=== PATIENT | male | born 1935 | race Caucasian/White ===

== ENCOUNTER 2018-08-10 14:06 | Observation (INO) | payer MEDICARE ==
--- NOTE | 2018-08-10 15:18 | ER Document Report ---
ED Medical Screen (RME) - General Chief Complaint: Facial Droop Stated Complaint: FACIAL DROOP Time Seen by Provider: 08/10/18 15:16 Mode of Arrival: Medic Information source: Patient Notes: 82-year-old male presents to ED for complaint of facial droop to the right side since . He came via EMS. He is alert and oriented and answering questions in full sentences. Respirations are regular and unlabored. 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 I have greeted and performed a rapid initial assessment of this patient. A comprehensive ED assessment and evaluation of the patient, analysis of test results and completion of medical decision making process will be conducted by an additional ED providers. TRAVEL OUTSIDE OF THE [place] IN LAST 30 DAYS: No - Related Data Allergies/Adverse Reactions: No Known Allergies Allergy (Verified 08/10/18 14:06) Physical Exam - Vital signs Vitals: Temp Pulse Resp BP Pulse Ox 98.1 F 81 20 143/77 H 96 08/10/18 14:10 08/10/18 14:10 08/10/18 14:10 08/10/18 14:10 08/10/18 14:10 Course - Vital Signs Vital signs: Temp Pulse Resp BP Pulse Ox 98.1 F 81 20 143/77 H 96 08/10/18 14:10 08/10/18 14:10 08/10/18 14:10 08/10/18 14:10 08/10/18 14:10 Doctor's Discharge - Discharge Referrals: Karolina LAWS MD [Primary Care Provider] - Follow up as needed
[2018-08-10 16:02] LABS: INTERNATIONAL RATION (INR) 0.96; PARTIAL THROMBOPLASTIN TIME 25.6 SEC (23.5-35.8); PROTHROMBIN TIME 13.2 SEC (11.4-15.4)
--- NOTE | 2018-08-10 17:02 | RADIOLOGY REPORT (SQ) ---
EXAM DESCRIPTION: CT HEAD WITHOUT COMPLETED DATE/TIME: 08/10/2018 4:47 pm REASON FOR STUDY: Right-sided facial droop, alert and oriented COMPARISON: None. TECHNIQUE: Axial images acquired through the brain without intravenous contrast. Images reviewed wi th bone, brain and subdural windows. Additional sagittal and coronal reconstructions were generated. Images stored on PACS. All CT scanners at this facility use dose modulation, iterative reconstruction, and/or weight based d osing when appropriate to reduce radiation dose to as low as reasonably achievable (ALARA). [facility]: Dose Right [facility]: CareDose [facility]: Dose Right [facility]: Teradose 4D [facility]: vogogo RADIATION DOSE: CT Rad equipment meets quality standard of care and radiation dose reduction techniq ues were employed. CTDIvol: 53.2 mGy. DLP: 991 mGy-cm. mGy. LIMITATIONS: None. FINDINGS: VENTRICLES: Normal size and contour. CEREBRUM: Subacute nonhemorrhagic infarcts are present in the left deep periventricular white matter on axial image 20. No acute intracranial hemorrhage, mass effect, or midline shift. CEREBELLUM: No masses. No hemorrhage. No alteration of density. No evidence for acute infarction. EXTRAAXIAL SPACES: No fluid collections. No masses. ORBITS AND GLOBE: No intra- or extraconal masses. Normal contour of globe without masses. CALVARIUM: No fracture. PARANASAL SINUSES: No fluid or mucosal thickening. SOFT TISSUES: No mass or hematoma. OTHER: No other significant finding. 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
[2018-08-10] MEDS ORDERED: NORMAL SALINE 1000 ML 1,000 ML IV ONE (17:38)
--- NOTE | 2018-08-10 17:43 | ER Document Report ---
ED General - General Chief Complaint: Facial Droop Stated Complaint: FACIAL DROOP Time Seen by Provider: 08/10/18 15:16 Mode of Arrival: Medic TRAVEL OUTSIDE OF THE [place] IN LAST 30 DAYS: No - HPI Notes: Patient is an 82-year-old male with a history of hypertension and diabetes (not currently on DM medications), blind in left eye(x5yrs) who presents to the ED complaining of possible stroke that he suffered 7 days ago. Patient states that he developed facial droop and slurring of speech at that time. When asked why patient did not get immediate follow-up, patient states that "I just did not want to." Patient states that he presents today mainly because his is having a hard time understanding his words because of the slurring. Patient states that he is still able to eat and drink without any difficulties. He is urinating normally and having normal bowel movements. He has not noticed any significant weakness. Patient states that he is still ambulatory. He is not on any blood thinners. Denies any headache, fever, head injury, neck pain, changes in vision/mentation/hearing, URI, sore throat, chest pain, palpitations , syncope, cough, shortness of breath, wheeze, dyspnea, abdominal pain, nausea/ vomiting/diarrhea, urinary retention, dysuria, hematuria, loss of control of bowel or bladder, numbness/tingling, saddle anesthesia, muscle paralysis/ weakness, or rash. - Related Data Allergies/Adverse Reactions: No Known Allergies Allergy (Verified 08/10/18 14:06) Past Medical History - General Information source: Patient - Social History Smoking Status: Current Some Day Smoker Chew tobacco use (# tins/day): No Frequency of alcohol use: Occasional Drug Abuse: None Family History: Reviewed & Not Pertinent Patient has suicidal ideation: No Patient has homicidal ideation: No Renal/ Medical History: Denies: Hx Peritoneal Dialysis Review of Systems - Review of Systems -: Yes All other systems reviewed and negative Physical Exam - Vital signs Vitals: Temp Pulse Resp BP Pulse Ox 98.1 F 81 20 143/77 H 96 08/10/18 14:10 08/10/18 14:10 08/10/18 14:10 08/10/18 14:10 08/10/18 14:10 - Notes Notes: PHYSICAL EXAMINATION: GENERAL: Well-appearing, well-nourished and in no acute distress. A&Ox4. Answers questions appropriately. HEAD: Atraumatic, normocephalic. Non-tender. EYES: Pupils equal round and reactive to light, extraocular movements intact, sclera anicteric, conjunctiva are normal. No nystagmus. vis fabian intact. ( left eye chronic blindness x5 years) ENT: EAC clear b/l. TM's intact b/l without erythema, fluid, or perforation. Nares patent and without discharge. oropharynx clear without exudates. No tonsilar hypertrophy or erythema. Moist mucous membranes. No sinus tenderness. Tongue protrudes midline and can be moved side to side. NECK: Normal range of motion, supple without lymphadenopathy. No rigidity/ meningismus. No midline tenderness. LUNGS: Breath sounds clear to auscultation bilaterally and equal. No wheezes rales or rhonchi. HEART: Regular rate and rhythm without murmurs, rubs, gallops. ABDOMEN: Soft, nontender, nondistended abdomen. No guarding, no rebound. Normal bowel sounds present. No CVA tenderness bilaterally. Musculoskeletal: Ext b/l: FROM to passive/active. Strength 5+/5. No deficits noted. No bony tenderness of extremities. Extremities: No cyanosis, clubbing, or edema b/l. Peripheral pulses 2+. Capillary refill less than 2 seconds. NEUROLOGICAL: NIH 4. GCS 15. Cranial nerves grossly intact with noted rt side facial droop. Speech is slurred but understandable. Normal sensory, motor exams otherwise. Reflexes 2+ b/l. RICARDO's negative. Pronator drift negative. Heel/mary, finger/nose wnl. PSYCH: Normal mood, normal affect. SKIN: Warm, Dry, normal turgor, no rashes or lesions noted. Course - Re-evaluation Re-evalutation: 08/10/18 17:43 CT obtained at triage which shows "subacute nonhemorrhagic infarcts in the left frontal deep periventricular white matter." Coags unremarkable. CBC and CMP added to blood work. EMS accucheck of 321. Fluids ordered. 08/10/18 17:53 I did call and speak with hospitalist, Dr. Hernández, who accepted admission. Pt is in agreement. - Vital Signs Vital signs: Temp Pulse Resp BP Pulse Ox 98.1 F 81 20 143/77 H 96 08/10/18 14:10 08/10/18 14:10 08/10/18 14:10 08/10/18 14:10 08/10/18 14:10 - Laboratory Result Diagrams: 08/10/18 15:35 08/10/18 15:35 Laboratory results interpreted by me: 08/10/18 15:35 BUN 27 H Creatinine 1.44 H Est GFR ( Amer) 57 L Est GFR (Non-Af Amer) 47 L Glucose 245 H Direct Bilirubin 0.6 H ALT 14 L Discharge - Discharge Clinical Impression: CVA, old, facial weakness Condition: Stable Disposition: ADMITTED INPATIENT Admitting Provider: Hospitalist - Dr. Hernández Unit Admitted: Medical Floor Referrals: Karoilna LAWS MD [ACTIVE STAFF] - Follow up as needed
[2018-08-10 17:49] LABS: ALANINE AMINOTRANSFERASE 14 U/L (21-72); ALBUMIN 4.5 g/dL (3.5-5.0); ALKALINE PHOSPHATASE 71 U/L (38-126); ANION GAP 13 (5-19); ASPARTATE AMINO TRANSFERASE 23 U/L (17-59); BILIRUBIN,DIRECT 0.6 mg/dL (0.0-0.4); BLOOD UREA NITROGEN 27 mg/dL (7-20); CALCIUM 9.6 mg/dL (8.4-10.2); CARBON DIOXIDE 24 mmol/L (22-30); CHLORIDE 105 mmol/L (98-107); GLUCOSE 245 mg/dL (75-110); POTASSIUM 4.2 mmol/L (3.6-5.0); SODIUM 142.4 mmol/L (137-145)
[2018-08-10 17:54] LABS: ABSOLUTE EOSINOPHILS # (AUTO) 0.2 10^3/uL (0.0-0.6); ABSOLUTE LYMPHOCYTES (AUTO) 1.1 10^3/uL (0.5-4.7); ABSOLUTE MONOCYTES (AUTO) 0.3 10^3/uL (0.1-1.4); ABSOLUTE NEUT (AUTO) 3.3 10^3/uL (1.7-8.2); BASOPHILS % (AUTO) 0.8 % (0-2); EOSINOPHILS % (AUTO) 4.5 % (0-6); HEMATOCRIT 46.8 % (37.9-51.0); HEMOGLOBIN 16.2 g/dL (13.5-17.0); LYMPHOCYTES % (AUTO) 21.3 % (13-45); MEAN CORPUSCULAR HEMOGLOBIN 30.5 pg (27.0-33.4); MEAN CORPUSCULAR HGB CONC 34.6 g/dL (32.0-36.0); MEAN CORPUSCULAR VOLUME 88 fl (80-97); MONOCYTES % (AUTO) 6.6 % (3-13); PLATELET COUNT 194 10^3/uL (150-450); RED BLOOD COUNT 5.31 10^6/uL (4.35-5.55); RED CELL DISTRIBUTION WIDTH 13.7 % (11.5-14.0); SEGMENTED NEUTROPHILS % (AUTO) 66.8 % (42-78); TOTAL CELLS COUNTED % (AUTO) 100 %
[2018-08-10] MEDS ORDERED: ONDANSETRON HCL INJ/PF 4 MG/2 ML SDV IV PRN (18:42)
[2018-08-10] MEDS ORDERED: HYDROCODONE/ACETAMINOPHEN 5-325 MG TABLET PO PRN (18:42)
[2018-08-10] MEDS ORDERED: ACETAMINOPHEN 325 MG TABLET PO PRN (18:42)
[2018-08-10] MEDS ORDERED: DOCUSATE SODIUM 100 MG CAPSULE PO PRN (18:42)
--- NOTE | 2018-08-10 19:51 | PDOC H&P ---
History of Present Illness Admission Date/PCP: 08/10/18 18:48 Patient complains of: Difficulty with speech, History of Present Illness: JACK CHRISTIANSON is a 82 year old male Who presents to the emergency room with complaints of 70 right upper extremity weakness as well as difficulty with his speech. He still has received aphasia. He denies any difficulty swallowing, chest pain, dizziness, or any leg weakness, patient really denies any problems other significant medical history. He says he takes no medications and usually ambulates without any assistance Past Medical History Medical History: None Past Surgical History Past Surgical History: Reports: None Social History Smoking Status: Current Some Day Smoker - Advance Directive Resuscitation Status: Full Code Family History Family History: Reviewed & Not Pertinent Parental Family History Reviewed: No Children Family History Reviewed: Yes Sibling(s) Family History Reviewed.: No Medication/Allergy Home Medications: No Home Medications 08/10/18 Allergies/Adverse Reactions: No Known Allergies Allergy (Verified 08/10/18 14:06) Review of Systems All systems: reviewed and no additional remarkable complaints except as stated Physical Exam Vital Signs: Temp Pulse Resp BP Pulse Ox 98.1 F 74 15 166/71 H 97 08/10/18 14:10 08/10/18 18:17 08/10/18 18:17 08/10/18 18:17 08/10/18 18:17 General appearance: PRESENT: no acute distress, cooperative Head exam: PRESENT: atraumatic Mouth exam: PRESENT: dry mucosa Respiratory exam: PRESENT: decreased breath sounds GI/Abdominal exam: PRESENT: normal bowel sounds, soft. ABSENT: distended, guarding, mass, organolmegaly, rebound, tenderness Rectal exam: PRESENT: deferred Neurological exam: PRESENT: alert, awake, oriented to person, oriented to place , oriented to time, motor sensory deficit - Strength 3/5 RUE R tongue deviation , aphasic - mild expressive, other - dysarthria Psychiatric exam: PRESENT: appropriate affect Skin exam: PRESENT: rash - lower extremities Results Laboratory Results: 08/10/18 15:35 08/10/18 15:35 MCV 88 fl (80-97) 08/10/18 15:35 MCH 30.5 pg (27.0-33.4) 08/10/18 15:35 MCHC 34.6 g/dL (32.0-36.0) 08/10/18 15:35 RDW 13.7 % (11.5-14.0) 08/10/18 15:35 Seg Neutrophils % 66.8 % (42-78) 08/10/18 15:35 Lymphocytes % 21.3 % (13-45) 08/10/18 15:35 Monocytes % 6.6 % (3-13) 08/10/18 15:35 Eosinophils % 4.5 % (0-6) 08/10/18 15:35 Basophils % 0.8 % (0-2) 08/10/18 15:35 Absolute Neutrophils 3.3 10^3/uL (1.7-8.2) 08/10/18 15:35 Absolute Lymphocytes 1.1 10^3/uL (0.5-4.7) 08/10/18 15:35 Absolute Monocytes 0.3 10^3/uL (0.1-1.4) 08/10/18 15:35 Absolute Eosinophils 0.2 10^3/uL (0.0-0.6) 08/10/18 15:35 Absolute Basophils 0.0 10^3/uL (0.0-0.2) 08/10/18 15:35 Chloride 105 mmol/L (98-107) 08/10/18 15:35 Carbon Dioxide 24 mmol/L (22-30) 08/10/18 15:35 Anion Gap 13 (5-19) 08/10/18 15:35 Est GFR ( Amer) 57 (>60) L 08/10/18 15:35 Est GFR (Non-Af Amer) 47 (>60) L 08/10/18 15:35 Glucose 245 mg/dL (75-110) H 08/10/18 15:35 Calcium 9.6 mg/dL (8.4-10.2) 08/10/18 15:35 Total Bilirubin 1.0 mg/dL (0.2-1.3) 08/10/18 15:35 AST 23 U/L (17-59) 08/10/18 15:35 ALT 14 U/L (21-72) L 08/10/18 15:35 Alkaline Phosphatase 71 U/L (38-126) 08/10/18 15:35 Total Protein 8.0 g/dL (6.3-8.2) 08/10/18 15:35 Albumin 4.5 g/dL (3.5-5.0) 08/10/18 15:35 Impressions: Head CT 08/10/18 15:19 IMPRESSION: 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 Will obtaiun echo, carotid doppler and MRI PT and OT evaluation ekg monitor, troponin and EKG - Time Time Spent: 30 to 50 Minutes Medications reviewed and adjusted accordingly: Yes Anticipated discharge: Home with Homehealth Within: within 24 hours - Inpatient Certification Based on my medical assessment, after consideration of the patient's comorbidities, presenting symptoms, or acuity I expect that the services needed warrant INPATIENT care.: Yes Medical Necessity: Risk of Complication if Not Cared For in Hospital
[2018-08-10] MEDS ORDERED: 1/2 NORMAL SALINE 1,000 ML IV PRN (19:52)
--- NOTE | 2018-08-10 21:27 | RADIOLOGY REPORT (SQ) ---
XR CHEST 1 VIEW HISTORY: CVA COMPARISON: None. FINDINGS/IMPRESSION: Normal cardiomediastinal contours. Lungs are clear. No pleural effusion or pneumothorax is seen. No acute osseous findings.
[2018-08-10] MEDS ORDERED: ATORVASTATIN CALCIUM 20 MG TABLET PO SCH (22:00)
[2018-08-10] MEDS ORDERED: HYDRALAZINE HCL INJ/PF 20 MG/1 ML SDV IV PRN (22:37)
[2018-08-11] MEDS ORDERED: ASPIRIN 325 MG TABLET, ENT COATED PO ONE (01:15)
--- NOTE | 2018-08-11 02:09 | RADIOLOGY REPORT (SQ) ---
NAME: JACK CHRISTIANSON PROCEDURE: US CAROTID DOPPLER BILATERAL ORDER DATE: 08/10/2018 12:00 AM CDT ACCESSION NUMBER: [id number] Clinical History: CVA, dysarthria Indication: Same as above Comparison: None . COMPLETED DATE/TME: 08/10/2018 00:00 TECHNIQUE: Real time images, spectral wave analysis, Doppler color flow analysis and measurement of the arterial velocities of the bilateral common carotid, internal carotid, external carotid and vertebral arteries was done. FINDINGS: The peak systolic velocity in cm/sec on the right side is as follows: Proximal CCA: 43.5 Distal CCA: 38.6 Proximal ICA: 57.5 Distal ICA: 76.1 External Carotid Artery: 41.5 Vertebral Artery: 31.4, [antegrade] flow. ICA/CCA Ratio: 1.9 The peak systolic velocity in the cm/sec on the left side is as follows: Proximal CCA: 64 Distal CCA: 51 Proximal ICA: 67 Distal ICA: 82 External Carotid Artery: 43 Vertebral Artery: 32, [antegrade] flow. ICA/CCA Ratio: 1.6 Mild soft plaque formation is seen in the bilateral carotid distribution. IMPRESSION: There is no evidence of hemodynamically significant stenosis in the bilateral common carotid and the bilateral internal carotid arteries. Antegrade flow is seen in the bilateral vertebral arteries.
[2018-08-11 05:09] LABS: ANION GAP 10 (5-19); BLOOD UREA NITROGEN 22 mg/dL (7-20); CALCIUM 8.7 mg/dL (8.4-10.2); CARBON DIOXIDE 23 mmol/L (22-30); CHLORIDE 110 mmol/L (98-107); CHOLESTEROL 182.85 mg/dL (0-200); GLUCOSE 136 mg/dL (75-110); POTASSIUM 3.7 mmol/L (3.6-5.0); SODIUM 142.8 mmol/L (137-145); TRIGLYCERIDES 204 mg/dL (<150)
[2018-08-11 05:20] LABS: DIRECT LDL 109 mg/dL (<100)
[2018-08-11 05:28] LABS: VLDL CHOLESTEROL 40.8 mg/dL (10-31)
--- NOTE | 2018-08-11 07:15 | RADIOLOGY REPORT (SQ) ---
EXAM DESCRIPTION: MR BRAIN WITHOUT IV CONTRAST COMPLETED DATE/TME: 08/10/2018 00:00 CLINICAL HISTORY: 82 years Male, Subacute CVA COMPARISON: CT, same day TECHNIQUE/LIMITATION: Conventional noncontrast MRI. FINDINGS: Acute/subacute ischemia pattern measures 3.3 cm at the left deep periventricular white matter consistent with CT. Adjacent faint increased T1 speckled signal at the left external capsule. No mass effect no midline shift. Normal ventricles. Bilateral maxillary retention cyst-mucocele measure up to 2.4 cm on the left. IMPRESSION: Acute/subacute ischemia of the left deep periventricular white matter.
--- NOTE | 2018-08-11 08:34 | EKG REPORT ---
SEVERITY:- ABNORMAL ECG - SINUS RHYTHM BORDERLINE LEFT AXIS DEVIATION : Confirmed by: Rick Herrera 11-Aug-2018 08:34:02
[2018-08-11] MEDS ORDERED: ASPIRIN 325 MG TABLET, ENT COATED PO SCH (10:00)
[2018-08-11] MEDS ORDERED: ENOXAPARIN SODIUM INJ 40 MG/0.4 ML DISP.SYRIN SUBCUT SCH (10:00)
--- NOTE | 2018-08-11 11:37 | PDOC DISCHARGE SUMMARY ---
General - Admit/Disc Date/PCP Admission Date/Primary Care Provider: 08/10/18 18:48 Discharge Date: 08/11/18 - Discharge Diagnosis (1) CVA (cerebral vascular accident) Is this a current diagnosis for this admission?: Yes (2) EDYTA (acute kidney injury) Is this a current diagnosis for this admission?: Yes Summary: Possibly superimposed on CKD stage 3 (3) Dyslipidemia Is this a current diagnosis for this admission?: Yes - Additional Information Resuscitation Status: Full Code Discharge Diet: Cardiac Discharge Activity: Activity As Tolerated Prescriptions: Atorvastatin Calcium [Lipitor 20 mg Tablet] 20 mg PO QHS #30 tablet Home Medications: Atorvastatin Calcium [Lipitor 20 mg Tablet] 20 mg PO QHS #30 tablet 08/11/18 History of Present Illness History of Present Illness: JACK CHRISTIANSON is a 82 year old male Who presents to the emergency room with complaints of 70 right upper extremity weakness as well as difficulty with his speech. He still has received aphasia. He denies any difficulty swallowing, chest pain, dizziness, or any leg weakness, patient really denies any problems other significant medical history. He says he takes no medications and usually ambulates without any assistance Hospital Course Hospital Course: Patient was monitored overnight with no extension of his symptoms in fact I did perceive that his dysarthria seem to be a little bit better and much improved this morning. He still has his right facial droop but he was able to ambulate to the bathroom impending inclement weather there is no physical therapy occupational therapy for evaluation prior to discharge per patient will be set up with outpatient rehabilitation for further management. MRI done did confirm the acute to subacute CVA and carotid Doppler studies revealed no significant findings. Echocardiogram result is still pending at this time but patient will be following up with Dr. Herrera for results of the echo as well as outpatient telemetry monitoring. Patient has been hemodynamically stable. He has been started on aspirin as well as Lipitor which will be continued. At this time is been discharged home in stable condition. Physical Exam Vital Signs: Temp Pulse Resp BP Pulse Ox 97.6 F 65 16 127/66 H 98 08/11/18 07:27 08/11/18 07:27 08/11/18 07:27 08/11/18 07:27 08/11/18 07:27 Intake & Output 08/10/18 08/11/18 08/12/18 06:59 06:59 06:59 Intake Total 1100 Output Total 0 Balance 1100 Weight 60.2 kg General appearance: PRESENT: no acute distress, thin - elderly and frail Head exam: PRESENT: atraumatic Eye exam: PRESENT: EOMI Mouth exam: PRESENT: moist, tongue midline Neck exam: ABSENT: carotid bruit, JVD, lymphadenopathy, thyromegaly Respiratory exam: PRESENT: clear to auscultation ladan. ABSENT: rales, rhonchi, wheezes Cardiovascular exam: PRESENT: RRR, +S1, +S2. ABSENT: diastolic murmur, rubs, systolic murmur GI/Abdominal exam: PRESENT: normal bowel sounds, soft. ABSENT: distended, guarding, mass, organolmegaly, rebound, tenderness Neurological exam: PRESENT: alert, awake, oriented to person, oriented to place , oriented to time, oriented to situation, motor sensory deficit - Strength 3/5 R facial droop Dysarthria- mild, other Psychiatric exam: PRESENT: appropriate affect, normal mood. ABSENT: homicidal ideation, suicidal ideation Results Laboratory Results: 08/11/18 03:38 08/11/18 03:38 Sodium 142.8 Potassium 3.7 Chloride 110 H Carbon Dioxide 23 Anion Gap 10 BUN 22 H Creatinine 1.11 Est GFR ( Amer) > 60 Est GFR (Non-Af Amer) > 60 Glucose 136 H Calcium 8.7 Triglycerides 204 H Cholesterol 182.85 LDL Cholesterol Direct 109 H VLDL Cholesterol 40.8 H HDL Cholesterol 29 L 08/11/18 03:38 Troponin I < 0.012 Impressions: Carotid Doppler Study 08/10/18 00:00 IMPRESSION: There is no evidence of hemodynamically significant stenosis in the bilateral common carotid and the bilateral internal carotid arteries. Antegrade flow is seen in the bilateral vertebral arteries. Chest X-Ray 08/10/18 00:00 FINDINGS/IMPRESSION: Normal cardiomediastinal contours. Lungs are clear. No pleural effusion or pneumothorax is seen. No acute osseous findings. Head MRI 08/10/18 00:00 IMPRESSION: Acute/subacute ischemia of the left deep periventricular white matter. Head CT 08/10/18 15:19 IMPRESSION: Subacute nonhemorrhagic infarcts in the left frontal deep periventricular white matter EVIDENCE OF ACUTE STROKE: Yes Qualifiers - * PATIENT BEING DISCHARGED WITH ANY OF THE FOLLOWING DIAGNOSIS: Stroke Stroke Pt being discharged on Anti-thrombolytic therapy?: Yes Stroke Pt being discharged on Anti-coagulation therapy?: No Reason(s) for not prescribing Anti-coagulation therapy:: Not indicated Stroke Pt being discharged on Statins?: Yes Plan Time Spent: Less than 30 Minutes
--- NOTE | 2018-08-11 15:42 | XCELERA REPORT ---
[address] [address] Transthoracic Echocardiogram Report Name: JACK CHRISTIANSON Age: 82 yrs Gender: Male : 1935 Patient Status: Inpatient Patient Location: [place] [address]^A Study Date: 08/10/2018 07:51 PM Height: 69 in Weight: 128 lb BSA: 1.7 m2 Procedure: A two-dimensional transthoracic echocardiogram with color flow Doppler was performed. Study Quality: Technically suboptimal. The study was technically difficult with many images being suboptimal in quality. Reason For Study: CVA, dysarthria History: CVA, dysarthria. Ordering Physician: WILBER SEQUEIRA Performed By: Ashley Ponce Interpretation Summary There is no obvious cardiac source of embolus noted on this transthoracic echocardiogram. Follow-up with a JENNIFER is suggested if cardiac source is still suspected. The left ventricle is normal in size. There is normal left ventricular wall thickness. Left ventricular systolic function is normal. LV EF is > than 60% Doppler measurements suggest impaired left ventricular relaxation, which is associated with grade I/IV or mild diastolic dysfunction No defenite regional wall motion abnormality. There is no thrombus. Right atrium not well visualized secondary to technical limitations The left atrial size is normal. There is no evidence of mitral valve prolapse. There is no mitral valve stenosis. There is a trace amount of mitral regurgitation There is no aortic valve stenosis No aortic regurgitation is present. There is no tricuspid stenosis. There is a trace amount of tricuspid regurgitation Right ventricular systolic pressure is normal. RVSP is 12 mm of Hg , with RA mean of 10. The pulmonic valve is not well visualized. The aortic root is not well visualized but is probably normal size. There is no pericardial effusion. There is no obvious cardiac source of embolus noted on this transthoracic echocardiogram. Follow-up with a JENNIFER is suggested if cardiac source is still suspected MMode/2D Measurements & Calculations RVDd: 2.4 cm LVIDd: 4.4 cm FS: 35.8 % Ao root diam: 3.0 cm IVSd: 0.97 cm LVIDs: 2.8 cm EDV(Teich): 85.5 ml Ao root area: 6.8 cm2 LVPWd: 1.0 cm ESV(Teich): 29.4 ml LA dimension: 2.7 cm EF(Teich): 65.6 % Doppler Measurements & Calculations MV E max vickie: MV P1/2t max vickie: Ao V2 max: LV V1 max P.2 cm/sec 71.9 cm/sec 108.6 cm/sec 2.7 mmHg MV A max vickie: MV P1/2t: 50.0 msec Ao max PG: LV V1 max: 89.8 cm/sec MVA(P1/2t): 4.4 cm2 4.7 mmHg 81.9 cm/sec MV E/A: 0.66 MV dec slope: 421.6 cm/sec2 MV dec time: 0.22 sec TV V2 max: PA V2 max: TR max vickie: MV P1/2t-pr_phl: 74.0 cm/sec 80.8 cm/sec 115.6 cm/sec 50.0 msec TV max PG: PA max P.6 mmHg TR max P.2 mmHg 5.3 mmHg Left Ventricle The left ventricle is normal in size. There is normal left ventricular wall thickness. Left ventricular systolic function is normal. LV EF is > than 60%. Doppler measurements suggest impaired left ventricular relaxation, which is associated with grade I/IV or mild diastolic dysfunction. No defenite regional wall motion abnormality. There is no thrombus. Right Ventricle The right ventricle is not well visualized secondary to technical limitations. Atria Right atrium not well visualized secondary to technical limitations. The left atrial size is normal. Mitral Valve There is no evidence of mitral valve prolapse. There is no vegetation seen on the mitral valve. There is no mitral valve stenosis. There is a trace amount of mitral regurgitation. Aortic Valve There is no aortic valve stenosis. No aortic regurgitation is present. Tricuspid Valve There is no tricuspid stenosis. There is a trace amount of tricuspid regurgitation. Right ventricular systolic pressure is normal. RVSP is 12 mm of Hg , with RA mean of 10. Pulmonic Valve The pulmonic valve is not well visualized. Great Vessels The aortic root is not well visualized but is probably normal size. Effusions There is no pericardial effusion. : WILBER SEQUEIRA > Avelina Rebolledo
[2018-08-11 16:00] VITALS: BP 127/67
== END 2018-08-11 16:27 | disposition home health service (06) ==
LOC: ER 14:06 → EH 18:48 → INTOOBSV 18:48 → 3N 23:40
PROVIDERS: ADMIT Internal Medicine; ATTEND Internal Medicine
DX: I63.30 Cerebral infarction due to thrombosis of unspecified cerebral artery (principal); R47.01 Aphasia; G83.21 Monoplegia of upper limb affecting right dominant side; R29.810 Facial weakness; R47.1 Dysarthria and anarthria; N17.9 Acute kidney failure, unspecified; E78.5 Hyperlipidemia, unspecified; E11.9 Type 2 diabetes mellitus without complications; F17.200 Nicotine dependence, unspecified, uncomplicated; R21 Rash and other nonspecific skin eruption
CPT/HCPCS: 99285; 96360; 36415 ×2; 82962; 85025; 85610; 85730; 80048; 80053; 84484; 83036; 80061; 93306; 93880; 70551; 71045; 70450; 93005; 93010; A9270; J1650; J3490 ×2; J7030